=== PATIENT | female | born 1955 | race Caucasian/White ===

== ENCOUNTER → 2018-11-30 | Outpatient (CLI) | payer MEDICARE, OTHER | LOC: GMAL 10:28 | PROVIDERS: ATTEND Family Medicine | DX: D51.3 Other dietary vitamin B12 deficiency anemia (principal); R53.82 Chronic fatigue, unspecified; E55.9 Vitamin D deficiency, unspecified; I10 Essential (primary) hypertension; E11.9 Type 2 diabetes mellitus without complications; E78.49 Other hyperlipidemia ==

== ENCOUNTER → 2018-12-13 | Outpatient (CLI) | payer MEDICARE, OTHER ==
--- NOTE | 2018-12-14 17:06 | MAM ---
EXAM DESCRIPTION: 3D Screening BILATERAL : Digital Mammography. CLINICAL HISTORY: 63 years Female ANNUAL SCREENING . No complaints. No personal or family history of breast cancer. Childbirth. Postmenopausal 20+ years. No HRT. Lifetime risk of developing breast cancer (Tyrer-Cuzick model)(%): 4.6. COMPARISON: 2-D digital screening bilateral mammography 01/19/2012. No prior reports available. TECHNIQUE: Bilateral CC and MLO projection full-field images, digital tomosynthesis mammographic technique. Bilateral digital 2-D full-field MLO images. CAD not available for tomosynthesis or 2-D images. FINDINGS: The breast parenchymal density pattern is: Heterogeneously dense breast tissue, which may obscure small masses. No skin thickening or nipple retraction. Bilateral multiple solitary microcalcifications. Stable large left axillary lymph node and intramammary lymph node left breast. No new focal, stellate mass or density, focal asymmetry , and no suspicious microcalcifications bilaterally. Stable mammograms compared to prior study. Taking into account, differences in mammographic technique. IMPRESSION: Benign exam. BIRAD CATEGORY: 2 BENIGN FINDINGS. RECOMMENDATIONS: FOLLOW UP: Routine digital bilateral mammographic screening, one year interval from December 2018. Written communication explaining the IMPRESSION and follow-up, will be mailed to the patient and referring health care provider. According to the [employer], yearly mammograms are recommended starting at age 40 and continuing as long as a woman is in good health. Any breast change noted on a breast self-exam should be reported promptly to the patient's healthcare provider. Breast MRI is recommended for women with an approximately 20-25% or greater lifetime risk of breast cancer, including women with a strong family history of breast or ovarian cancer and women who have been treated for Hodgkin's disease. A negative mammographic report should not delay tissue diagnosis in patients with significant clinical history or physical findings. Extremely dense breast tissue limits the sensitivity of digital mammography. Electronically signed by: Gustavo Hamilton MD 12/14/2018 5:04 PM CDT
== END ==
LOC: MAMMO 08:39
PROVIDERS: ATTEND Family Medicine
DX: Z12.31 Encounter for screening mammogram for malignant neoplasm of breast (principal)

== ENCOUNTER 2019-01-26 05:47 | Day surgery (SDC) | payer MEDICARE, OTHER ==
[2019-01-26] MEDS ORDERED: LACTATED RINGERS 1,000 ML ONE (06:11)
[2019-01-26] MEDS ORDERED: LACTATED RINGERS 1,000 ML IVS ONE (07:55)
[2019-01-26 08:56] VITALS: O2SAT 98
--- NOTE | 2019-01-26 09:35 | OP ---
DATE OF PROCEDURE: 01/26/19 PREOPERATIVE DIAGNOSIS: 1. Colorectal cancer screening. POSTOPERATIVE DIAGNOSIS: 1. Unremarkable colonoscopy. PROCEDURE: 1. Colonoscopy. SURGEON: Bradley Camacho MD ANESTHESIA: Monitored anesthesia care. ESTIMATED BLOOD LOSS: Less than 5 mL. COMPLICATIONS: None. PROCEDURE: The patient was placed in the left lateral decubitus position. A time-out was performed. After deep sedation was achieved, the Olympus adult colonoscope was inserted through anus, into the rectum and advanced to the cecum under direct visualization with mild difficulty due to redundant right and left colon. Advancement of the endoscope required abdominal counterpressure. The terminal ileum was intubated and examined. The cecum was identified by the terminal ileum, ileocecal valve and the appendiceal orifice. Photodocumentation of these locations was performed. The patients bowel preparation was excellent. The endoscope was then progressively withdrawn and the total colonic lumen evaluated. Retroflexion was performed both in the right colon and in the rectum. The endoscope was then withdrawn and the procedure terminated. The patient tolerated the procedure well with no immediate complications. FINDINGS: 1. Unremarkable colonoscopy exam to the terminal ileum. IMPRESSION: 1. Unremarkable colonoscopy. RECOMMENDATIONS: 1. Okay to discharge home once the patient meets discharge criteria. 2. Resume prior diet. 3. Resume home medications. 4. Repeat colonoscopy in 10 years for colon cancer screening. 5. Followup in the GI clinic as needed. 6. Followup with primary care physician or referring physician as previously scheduled. #[id number] MTDD
[2019-01-26] MEDS ORDERED: LIDOCAINE 1% 10 ML VIAL INJ ONE (10:00)
[2019-01-26] MEDS ORDERED: PROPOFOL 200 MG/20 ML VIAL IV ONE (10:00)
[2019-01-26 10:12] VITALS: BP 210/99; TEMP 98.2
== END 2019-01-26 09:20 | disposition home or self-care (01) ==
LOC: AMB 05:47
PROVIDERS: ATTEND Internal Medicine Gastroenterology
DX: Z12.11 Encounter for screening for malignant neoplasm of colon (principal); Q43.8 Other specified congenital malformations of intestine; Z86.010 Personal history of colon polyps
CPT/HCPCS: 00812; 36416; 82948; G0105; J3490; J7120

== ENCOUNTER → 2019-07-19 | Outpatient (CLI) | payer MEDICARE, OTHER | LOC: RESP 14:15 | PROVIDERS: ATTEND Family Medicine | DX: R00.2 Palpitations (principal) ==

== ENCOUNTER 2019-10-10 21:40 | Observation (INO) | payer MEDICARE, OTHER ==
[2019-10-10] MEDS ORDERED: SODIUM CHLORIDE 0.9% (FLUSH) 10 ML SYG IV PRN (21:49)
[2019-10-10] MEDS ORDERED: NITROGLYCERIN 0.4 MG 25 EA TAB SL ONE (21:49)
--- NOTE | 2019-10-10 21:50 | ED.PDOC ---
History of Present Illness - General Chief Complaint: Chest Pain/CA Stated Complaint: chest pain Time Seen by Provider: 10/10/19 21:49 Source: patient - History of Present Illness Initial Comments: 63 yo female with PMH of HTN, DM2, HLD, A-fib on Eliquis who presents via EMS with CC of chest pain. Onset approximately 2 hours ago at [facility] while walking around shortly after eating some fast food. Reports initially mild dull/aching pain. She went home and the pain progressed further to a constant dull/aching/pressure pain in the center of her chest without radiation, at worst 8/10 severity for approximately 15 minutes and began to ease up shortly after taking one nitroglycerin tablet at home. EMS was called and patient transported to the ED, given baby aspirin x4 and another nitroglycerin tablet in route. Currently she report only 3/10 severity pain. Uncertain if the pain worsens with exertion, does worsen with deep breathing. Reports some brief dyspnea earlier but now resolved. Denies any fevers, chills, cough, sore throat, palpitations, leg swelling, abdominal pain, nausea/vomiting/diarrhea. PCP is Dr. Santana. Her sales warehouse driver is Dr. Boykin in [place]. Denies any history of CA or stents. Allergies/Adverse Reactions: Allergies NO KNOWN ALLERGY Allergy (Verified 10/10/19 21:53) Home Medications: Ambulatory Orders Lisinopril 1 tablet PO BID 01/21/19 Lovastatin 1 tablet PO BEDTIME 01/21/19 Metformin HCl [Fortamet] 500 mg PO TIDFD 01/21/19 Sertraline HCl [Zoloft] 50 mg PO BEDTIME 01/21/19 Fenofibrate 1 tablet PO DAILY 01/26/19 Review of Systems - Review of Systems Review of Systems: 10/10/19 22:11 as per HPI All other Systems: Reviewed and Negative Past Medical History (General) - Patient Medical History Hx Congestive Heart Failure: No Hx Diabetes: Yes - FBS-117 Hx MRSA: No Family Medical History - Family History Mother Family History: Unknown Physical Exam - Physical Exam General Appearance: Alert, Comfortable, No apparent distress Eyes, Ears, Nose, Throat Exam: PERRL/EOMI, normal ENT inspection, pharynx normal Neck: non-tender, full range of motion, supple, normal inspection Respiratory: chest non-tender, lungs clear, normal breath sounds, no respiratory distress, no accessory muscle use Cardiovascular/Chest: normal peripheral pulses, regular rate, rhythm, no edema, no gallop, no JVD, no murmur Peripheral Pulses: radial,right: 2+, radial,left: 2+ Gastrointestinal/Abdominal: non tender, soft, no organomegaly Extremity: normal range of motion, non-tender, normal inspection, no pedal edema, no calf tenderness 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 fib, other -BP elevated to 170s/100s on arrival, remainder of vitals WNL, patient stable, NAD -Obtain cardiac work-up, blood work, chest x-ray, EKG -Place PIV, will give nitroglycerin as needed, oxygen, aspirin already given by EMS in route 10/11/19 00:06 -Patient reexamined, remains stable, BP still slightly elevated 160s/90s, remainder of vitals WNL. -Initial troponin <0.02, pending repeat. Repeat EKG reveals some nonspecific T wave inversions in the anteroseptal leads but is otherwise unchanged from the initial. -Patient reports that her chest pain has been nearly resolved now for about 1 hour, rates 1/10 pain. Will give another dose of sublingual nitroglycerin and morphine 2 mg IV and reassess. Anticipate observation placement for chest pain. Her heart score is 5, which places her in the moderate risk category. 10/11/19 00:56 -Patient remains chest pain-free, vitals stable. Repeat troponin is <0.02. Discussed the patient in full with on-call hospitalist, Josemanuel Fernandez, who accepts the patient for observation placement for chest pain. Brian Barrientos MD Billing #[id number] 10/10/19 21:49 IV Care:Saline Lock per Protoc QSHIFT Telemetry .ONCE Sodium Chloride 0.9% (Flush) [Saline Flush Syringe] 10 ml IV PRN PRN EKG Stat Pulse Ox Stat Pulse Oximetry Assessment DAILY 10/10/19 23:45 EKG STAT Laboratory Results - last 24 hr 10/10/19 10/10/19 10/10/19 22:05 22:05 22:05 WBC 9.2 RBC 3.51 L Hgb 10.9 L Hct 31.4 L MCV 89.5 MCH 31.0 MCHC 34.6 RDW 12.9 Plt Count 277 MPV 6.6 L Absolute Neuts (auto) 7.20 H Absolute Lymphs (auto) 1.10 Absolute Monos (auto) 0.50 Absolute Eos (auto) 0.30 Absolute Basos (auto) 0.10 Neutrophils % 78.3 H Lymphocytes % 12.3 L Monocytes % 5.7 Eosinophils % 3.1 Basophils % 0.6 Sodium 136 Potassium 3.6 Chloride 103 Carbon Dioxide 24 Anion Gap 12.6 BUN 22 H Creatinine 0.99 BUN/Creatinine Ratio 22.2 H Random Glucose 202 H Serum Osmolality 281.0 Calcium 9.1 Troponin I B-Natriuretic Peptide 41.4 10/10/19 10/10/19 22:05 23:48 WBC RBC Hgb Hct MCV MCH MCHC RDW Plt Count MPV Absolute Neuts (auto) Absolute Lymphs (auto) Absolute Monos (auto) Absolute Eos (auto) Absolute Basos (auto) Neutrophils % Lymphocytes % Monocytes % Eosinophils % Basophils % Sodium Potassium Chloride Carbon Dioxide Anion Gap BUN Creatinine BUN/Creatinine Ratio Random Glucose Serum Osmolality Calcium Troponin I < 0.02 < 0.02 B-Natriuretic Peptide - EKG/XRAY/CT EKG: Sinus - NSR, HR 85, no ST elevations or Q waves noted, left axis deviation, intervals normal, nonspecific minimal ST segment changes noted in the lateral leads, no prior EKG for comparison XRAY: chest - No acute processes per my read Departure - Departure Clinical Impression: Chest pain Time of Disposition: 00:56 Disposition: Admit Patient Condition: Fair Departure Forms: ED Discharge - Pt. Copy, Patient Portal Self Enrollment Referrals: Robby Santana III, MD [Primary Care Provider] - 1-2 Weeks Home Medications: Ambulatory Orders Lisinopril 1 tablet PO BID 01/21/19 Lovastatin 1 tablet PO BEDTIME 01/21/19 Metformin HCl [Fortamet] 500 mg PO TIDFD 01/21/19 Sertraline HCl [Zoloft] 50 mg PO BEDTIME 01/21/19 Fenofibrate 1 tablet PO DAILY 01/26/19 Decision To Admit - Decistion To Admit Decision to Admit Reason: Admit from ER Decision to Admit Date: 10/11/19 Decision to Admit Time: 00:56
[2019-10-10] MEDS ORDERED: ASPIRIN (CHEWABLE) 81 MG TAB PO ONE (21:51)
--- NOTE | 2019-10-10 22:21 | RAD ---
EXAM DESCRIPTION: XR CHEST, 1 VIEW CLINICAL HISTORY: chest pain TECHNIQUE: Single frontal view of the chest is submitted. COMPARISON: None available for comparison FINDINGS: Heart: The cardiothoracic silhouette is within normal limits. Lungs: No focal consolidation. Mediastinum: Unremarkable Pleura: No appreciable effusion. No pneumothorax. Bones: Intact Upper abdomen: Unremarkable IMPRESSION: No acute disease. Electronically signed by: Kasi Cummings MD 10/10/2019 10:19 PM CDT
[2019-10-11] MEDS ORDERED: MORPHINE SULFATE INJ 10 MG/ML VIAL IV ONE (00:05)
[2019-10-11] MEDS ORDERED: NITROGLYCERIN 0.4 MG 25 EA TAB SL ONE (00:05)
[2019-10-11 01:33] VITALS: TEMP 98
[2019-10-11] MEDS ORDERED: ACETAMINOPHEN 325 MG TAB PO PRN (01:37)
[2019-10-11] MEDS ORDERED: NITROGLYCERIN 0.4 MG 25 EA TAB SL PRN (01:37)
[2019-10-11] MEDS ORDERED: MORPHINE SULFATE INJ 10 MG/ML VIAL IV PRN (01:37)
[2019-10-11] MEDS ORDERED: SODIUM CHLORIDE 0.9% (FLUSH) 10 ML SYG IV PRN (01:37)
[2019-10-11] MEDS ORDERED: GLUCAGON INJ 1 MG VIAL SUBCU PRN (01:44)
[2019-10-11] MEDS ORDERED: DEXTROSE 50% 25 GM/50 ML SYG IV PRN (01:44)
[2019-10-11] MEDS ORDERED: IV SET AND CAP CHANGE INJ INJ SCH (02:00)
[2019-10-11] MEDS ORDERED: INSULIN LISPRO 100 UNITS/ML PEN SUBCU SCH (07:00)
[2019-10-11] MEDS ORDERED: NON-FORMULARY MEDICATION 1 EA MIS (Metformin Hcl [Fortamet] 500 MG) PO SCH (07:30)
[2019-10-11] MEDS ORDERED: metFORMIN HCL 500 MG TAB ONE (07:34)
[2019-10-11] MEDS ORDERED: SODIUM CHLORIDE 0.9% (FLUSH) 10 ML SYG IV SCH (09:00)
[2019-10-11] MEDS ORDERED: APIXABAN 5 MG TAB PO SCH (09:00)
[2019-10-11] MEDS ORDERED: VERAPAMIL ER 120 MG TAB PO SCH (09:00)
[2019-10-11] MEDS ORDERED: FENOFIBRIC ACID 135 MG CAP PO SCH (09:00)
[2019-10-11] MEDS ORDERED: LISINOPRIL 10 MG TAB PO SCH (09:00)
[2019-10-11 09:34] VITALS: BP 153/76; O2SAT 98
[2019-10-11] MEDS ORDERED: metFORMIN HCL 500 MG TAB PO SCH ×2 (12:00→17:00)
--- NOTE | 2019-10-11 19:14 | SSS ---
SUPERVISING PHYSICIAN: Theo Lees MD DATE OF ADMISSION: 10/11/19 DATE OF DISCHARGE: 10/11/19 ADMISSION DIAGNOSIS: 1. Chest pain. 2. Diabetes mellitus, type 2. 3. Hypertension. 4. History of atrial fibrillation on Eliquis. DISCHARGE DIAGNOSIS: 1. Chest pain with no acute findings of acute coronary syndrome with no acute changes on EKG or any changes in cardiac workup, etiology uncertain. 2. Hypertension. 3. Type 2 diabetes mellitus. 4. History of atrial fibrillation on Eliquis with current EKGs at discharge showing a normal sinus rhythm with no ST or T wave changes. HISTORY OF PRESENT ILLNESS: Ms. Powell is a 63-year-old female patient that has a history of atrial fibrillation on Eliquis who came to the Emergency Room last night due to some chest pains. She endorses that approximately 2 hours after she was walking at [facility], she started developing some chest pains, dully, achy she describes in the center of her chest. She went home. The pain continued to worsen. She took a nitro for pain that was 8/10 in severity. The nitro did result in some decrease in her pain. She was brought to the ER by EMS and was given baby aspirins x4, another nitro en route with initial pain on presentation to the ER 3/10. She is not sure if the pain got worse with any exertional effort, but does worsen with deep breathing. She denied any actual fevers, chills, cough, sore throat, palpitations or abdominal pains. She does see Dr. Helm in [place] for cardiology and last saw her in August of this year and does not have a history of previous myocardial infarction or stent placement. Given that she is diabetic and the nature of her pain, the ER physician requested the patient be placed in observation for rule out for acute coronary syndrome. The patient was placed in observation in stable condition. PAST MEDICAL HISTORY: 1. Atrial fibrillation, chronic, on Eliquis. 2. Hypertension. 3. Former tobacco user. 4. Type 2 diabetes mellitus. PAST SURGICAL HISTORY: 1. Hysterectomy with bilateral salpingo-oophorectomy in 1993. 2. Bilateral tubal ligation. 3. Last stress test per review of records was in 2008 and at that point, she did have some stress induced ischemia in the inferolateral leads in the left ventricle which was later false positive as the cath that was done shortly after that in January of the same year was within normal limits. HOME MEDICATIONS: 1. Lisinopril. 2. Metformin. 3. Sertraline. 4. Lovastatin. 5. Fenofibrate. 6. Verapamil. 7. Eliquis. 8. Nitroglycerin. ALLERGIES: NO KNOWN DRUG ALLERGIES. FAMILY HISTORY: Father at age 78 secondary to prostate cancer and CVA and had a myocardial infarction with hypertension and diabetes. Mother had hypertension. She from a heart attack at age 57. She has two brothers that have hypertension. She has three sisters who have hypertension and diabetes. She has one son, one currently in this year, and she has two healthy daughters. 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 She is . She has three children currently, one this year. She does have a history of smoking tobacco, but quit at age 30. She does not use illicit drug or drink alcohol. REVIEW OF SYSTEMS: CONSTITUTIONAL: Negative for any fevers, chills, general malaise or unintentional weight loss. HEENT: Negative for sore throats, earaches, nasal congestion, vision changes. RESPIRATORY: Negative for shortness of breath, coughing or wheezing. CARDIOVASCULAR: As noted in history of present illness, chest pain. No reported syncopal episodes or tachycardia. GASTROINTESTINAL: Negative for nausea, vomiting, diarrhea, constipation or abdominal pain. GENITOURINARY: Negative for dysuria, hematuria, polyuria. MUSCULOSKELETAL: Negative for arthralgias or joint swelling. NEUROLOGIC: Negative for ataxia, seizures, syncopal episodes or other focal motor deficits. HEMATOLOGIC: Positive for easy bruising due to Eliquis. Negative for unexplained bleeding or transfusion reactions. PHYSICAL EXAMINATION: LABORATORY: White count 9,200, hemoglobin 10.9, hematocrit 31.4, platelet count 277,000. Differential did show a slight left shift, but her chemistries showed normal electrolytes with BUN 22, troponins less than 0.02 x3. Blood sugars ran between 115 and 120. Lipid panel was within normal limits with HDL 59, LDL 75, cholesterol 150, triglycerides 72. RADIOLOGY: Chest x-ray in the Emergency Room prior to admission per radiologic interpretation showed no acute disease. EKG showed normal sinus rhythm with just nonspecific ST wave changes, no acute changes from initial presentation until discharge. HOSPITAL COURSE: Ms. Powell was placed in observation for an extended rule out given her history of diabetes and current presentation of chest pains. She was admitted to the Floor in stable condition without any pain. Vital signs on admission showed she was hemodynamically stable and at discharge, blood pressure was 153/76, heart rate 76, afebrile at 98, pulse oximetry 98% on room air. She had no return of the symptoms, she had no pains of any sort, no chest pain or shortness of breath. She was continued on her home medications. She had no ectopy noted on cardiac telemetry that was monitored during the whole time was here. After exam, it was felt she was clinically stable enough to continue with outpatient management to followup with Dr. Santana as well as Dr. Helm. PLAN: Ms. Powell was placed in observation for rule out due to her history and current symptoms of chest pains prior to admission, but again was found to be without any recurrence of the symptoms she initially admitted with. I did discuss with her that she needs to followup with Dr. Santana, which she has an appointment for this week, and will need likely need another stress test, but that can be determined through Dr. Santana' office and, again, followup with Dr. Helm. She is to resume her normal diet, low fat, low cholesterol diet. Activities to increase as tolerated, but no strenuous exercise until she is cleared by Dr. Santana. MEDICATIONS PRESCRIBED ON DISCHARGE: 1. Nitroglycerin 0.4 mg sublingual q.3 minutes for chest pain as directed. No other medications were prescribed on discharge. DISPOSITION: The patient was discharged home. CONDITION ON DISCHARGE: Stable and improved. #[id number] [facility]
[2019-10-11] MEDS ORDERED: SIMVASTATIN 20 MG TAB PO SCH (21:00)
[2019-10-11] MEDS ORDERED: SERTRALINE HCL 50 MG TAB PO SCH (21:00)
== END 2019-10-11 11:30 | disposition home or self-care (01) ==
LOC: ER 21:40 → MS 10-11 01:01
PROVIDERS: ADMIT Nurse Practitioner Family; ATTEND Nurse Practitioner Family
DX: R07.89 Other chest pain (principal); I10 Essential (primary) hypertension; E11.9 Type 2 diabetes mellitus without complications; I48.20 Chronic atrial fibrillation, unspecified; I44.4 Left anterior fascicular block; Z79.01 Long term (current) use of anticoagulants; Z79.84 Long term (current) use of oral hypoglycemic drugs; Z79.899 Other long term (current) drug therapy; Z87.891 Personal history of nicotine dependence; Z82.49 Family history of ischemic heart disease and other diseases of the circulatory system
CPT/HCPCS: J2270; A4216; 80048; 82948 ×2; 80061; 36415 ×4; 85025; 84484 ×3; 83880; 36416; 71045; 94760 ×2; 93005 ×2; G0378

== ENCOUNTER → 2019-10-27 | Outpatient (CLI) | payer MEDICARE, OTHER ==
--- NOTE | 2019-10-28 10:10 | US ---
EXAM DESCRIPTION: Gall Bladder: ULTRASOUND. CLINICAL HISTORY: GASTRO-ESOPHAGEAL REFLUX DISEASE WITHOUT ESOPHAGITIS COMPARISON: Chest x-ray October 09. TECHNIQUE: Transabdominal scanning: Barron-scale and Doppler modes. FINDINGS: Gallbladder: normal size, shape, echogenicity; no intraluminal stones or sludge. No fluid around the gallbladder. No wall thickening. 2.6 mm. Non-tender with transducer pressure. Common bile duct: caliber 3.1 mm within normal limits. Liver: Increased echogenicity; contour liver capsule smooth where seen. No fluid around the liver. Intrahepatic biliary ducts normal caliber. Doppler hepatopedal flow portal vein.. 8 mm caliber at the juanita hepatis. Long axis right lobe 12.9 cm. Pancreas: normal size Normal echogenicity. Duct not seen. Aorta: 1.9 cm normal caliber. Right kidney: long axis is 8.9 cm. Normal cortical thickness and echogenicity. No echogenic stones or hydronephrosis.. IMPRESSION: 1. Fatty liver without enlargement. Physiologic vascularity. Otherwise negative. Unremarkable pancreas. 2. Negative findings gallbladder and common bile duct. Right kidney and abdominal aorta are unremarkable. No ascites. Electronically signed by: Gustavo Hamilton MD 10/28/2019 10:09 AM CDT
== END ==
LOC: US 07:53
PROVIDERS: ATTEND Family Medicine
DX: K21.9 Gastro-esophageal reflux disease without esophagitis (principal); K76.0 Fatty (change of) liver, not elsewhere classified

== ENCOUNTER → 2020-01-24 | Outpatient (CLI) | payer MEDICARE, OTHER | LOC: GMAL 10:24 | PROVIDERS: ATTEND Family Medicine | DX: D51.3 Other dietary vitamin B12 deficiency anemia (principal); E11.9 Type 2 diabetes mellitus without complications; R53.83 Other fatigue; E55.9 Vitamin D deficiency, unspecified; Z79.899 Other long term (current) drug therapy; E78.49 Other hyperlipidemia ==

== ENCOUNTER 2020-02-13 05:17 | Day surgery (SDC) | payer MEDICARE, OTHER ==
[2020-02-13] MEDS ORDERED: PROPARACAINE 0.5% OPHTH SOL 15 ML BTTL RIGHT_EYE ONE ×2 (10:29→10:53)
[2020-02-13] MEDS ORDERED: LIDOCAINE 1% 2 ML VIAL INJ ONE ×2 (10:30→10:53)
[2020-02-13] MEDS ORDERED: MOXIFLOXACIN HCL (OPHTH) 1 DROP DROPS RIGHT_EYE ONE ×2 (10:30→10:53)
[2020-02-13] MEDS ORDERED: DEXAMETHASONE 0.1% OPHTH SOL 1 DROP RIGHT_EYE ONE ×2 (10:30→10:53)
[2020-02-13] MEDS ORDERED: BRIMONIDINE 0.2% OPHTH DROPS RIGHT_EYE ONE ×2 (10:31→10:53)
[2020-02-13] MEDS ORDERED: TOBRAMYCIN SULF 0.3 % OPHT SOL 1 DROP RIGHT_EYE ONE ×2 (10:31→10:53)
[2020-02-13] MEDS ORDERED: MIDAZOLAM INJ 2 MG/2 ML VIAL ONE (10:52)
== END 2020-02-13 12:18 | disposition home or self-care (01) ==
LOC: AMB 05:17
PROVIDERS: ATTEND Ophthalmology
DX: E11.36 Type 2 diabetes mellitus with diabetic cataract (principal); H25.11 Age-related nuclear cataract, right eye; I10 Essential (primary) hypertension; Z79.84 Long term (current) use of oral hypoglycemic drugs; Z79.01 Long term (current) use of anticoagulants; Z79.899 Other long term (current) drug therapy
CPT/HCPCS: 00142; 36416; 66984; 82948; J2250

== ENCOUNTER → 2020-02-27 | Outpatient (CLI) | payer MEDICARE, OTHER | LOC: GMAL 10:45 | PROVIDERS: ATTEND Family Medicine | DX: D50.8 Other iron deficiency anemias (principal); R53.83 Other fatigue ==

== ENCOUNTER → 2020-03-05 | Outpatient (CLI) | payer MEDICARE, OTHER ==
[~2020-03-05] MED LIST: ACETAMINOPHEN 325 MG TAB PO ONE; FAMOTIDINE IV PREMIX 20 MG in PREMIX BAG 1 BAG IVPB ONE; IRON SUCROSE INJ 200 MG in SODIUM CHLORIDE 0.9% 250ML 250 ML IV ONE; diphenhydrAMINE HCL 50 MG/ML VIAL IV ONE
[2020-03-05 14:11] VITALS: BP 156/67; TEMP 98.2; O2SAT 98
== END ==
LOC: INFRM 13:27
PROVIDERS: ATTEND Family Medicine
DX: D50.8 Other iron deficiency anemias (principal)
CPT/HCPCS: 96365; 96367; 96375; J1756; J3490; J7050

== ENCOUNTER → 2020-03-26 | Outpatient (CLI) | payer MEDICARE, OTHER | LOC: GMAL 14:43 | PROVIDERS: ATTEND Family Medicine | DX: D50.8 Other iron deficiency anemias (principal) ==

== ENCOUNTER → 2020-04-24 | Outpatient (CLI) | payer MEDICARE, OTHER | LOC: GMAL 10:32 | PROVIDERS: ATTEND Family Medicine | DX: D50.8 Other iron deficiency anemias (principal); Z79.899 Other long term (current) drug therapy; R19.5 Other fecal abnormalities ==

== ENCOUNTER → 2020-05-25 | Outpatient (CLI) | payer MEDICARE, OTHER ==
--- NOTE | 2020-05-26 11:36 | MRI ---
EXAM DESCRIPTION: Brain w/wo Contrast: Magnetic Resonance Imaging. CLINICAL HISTORY: 64 years Female AGE-RELATED COGNITIVE DECLINE COMPARISON: None. TECHNIQUE: Multiplanar, high-field MRI, multiple conventional sequences, without and with gadolinium IV contrast. No adverse reactions. Multiple axial diffusion sequences. FINDINGS: In the vertex of the right cerebral hemisphere near the frontoparietal junction is hyperintense signal on the diffusion DWI SB 0 and SB 1000 scans. Minimal hypointense signal on the ADC map scan. No abnormal enhancement. Diffusion abnormality, versus vascularity, versus artifact. Remainder of the diffusion scans are unremarkable. Bilateral confluent periventricular hyperintense FLAIR and T2-weighted signal in the periventricular white matter involving the frontal horns and frontal lobes extending to the bilateral centrum semiovale. Also bilateral focal punctate hyperintense FLAIR and T2 weighted lesions in the bilateral frontal lobes and left parietal lobe. Possible smaller lesions in the right occipital lobe.. No hemorrhage, no cerebral edema, no mass-effect. No abnormal contrast enhancement. Normal signal in the bilateral basal ganglia. Normal contrast enhancement. Normal signal in the brainstem and cerebellar hemispheres. Normal contrast enhancement. Concordance of the diffusion and non-diffusion sequences with no evidence of acute or subacute infarction. Cortical sulci, ventricles, and other CSF spaces, and the subdural spaces are normal in configuration for patient's age. No effacement or displacement. No midline shift. No extra-axial hemorrhage. Normal contrast enhancement. Normal flow signal void in the major vessels of the nome Styles, and the venous sinuses. IACs are symmetric bilaterally. Normal signal in the bilateral mastoid air cells. No mass effect in the bilateral Cerebellopontine angles. Normal contrast enhancement. Pituitary gland occupies the entire sella. Normal contrast enhancement. Base of the cerebellar tonsils is at the level of the foramen magnum. Mucoperiosteal thickening in the paranasal sinuses with no air-fluid levels.. The bony calvarium is intact. IMPRESSION: 1. Questionable area of diffusion restriction superior vertex right frontoparietal junction. More likely normal vascularity or artifact. Correlate with clinical findings. No other regions of diffusion restriction. 2. No extra-axial hemorrhage or fluid collection. No intra-axial hemorrhage, mass effect, midline shift, or edema. Minimal periventricular and subcortical white matter lesions, most likely related to cerebral microvascular disease or aging. 3. Chronic sinusitis. Nasal region with no air-fluid levels. Electronically signed by: Gustavo Hamilton MD 05/26/2020 11:34 AM [facility]
== END ==
LOC: MRI 09:42
PROVIDERS: ATTEND Family Medicine
DX: R41.81 Age-related cognitive decline (principal); J32.9 Chronic sinusitis, unspecified; R90.82 White matter disease, unspecified; G93.9 Disorder of brain, unspecified

== ENCOUNTER 2020-06-06 05:58 | Day surgery (SDC) | payer MEDICARE, OTHER ==
[2020-06-06] MEDS ORDERED: SODIUM CHLORIDE 0.9% 1000ML 1,000 ML ONE (06:32)
[2020-06-06] MEDS ORDERED: PROPOFOL 200 MG/20 ML VIAL IV ONE (07:00)
[2020-06-06] MEDS ORDERED: LIDOCAINE 1% 10 ML VIAL INJ ONE (07:00)
[2020-06-06] MEDS ORDERED: LACTATED RINGERS 1,000 ML IVS ONE (08:40)
--- NOTE | 2020-06-06 09:23 | OP ---
DATE OF PROCEDURE: 06/06/20 PREOPERATIVE DIAGNOSIS: 1. Iron deficiency anemia related to chronic blood loss. POSTOPERATIVE DIAGNOSIS: 1. Small hiatal hernia. 2. Otherwise, normal upper endoscopy. PROCEDURE: 1. Esophagogastroduodenoscopy. SURGEON: Bradley Camacho MD ANESTHESIA: Monitored anesthesia care. ESTIMATED BLOOD LOSS: Less than 5 mL. COMPLICATIONS: None. PROCEDURE: The patient was placed in the left lateral decubitus position. A time-out was performed. After deep sedation was achieved, the Olympus adult upper endoscope was inserted through the oropharynx and into the proximal esophagus and advanced to the second portion of the duodenum under direct visualization. The endoscope was then progressively withdrawn and the duodenum, stomach and esophageal lumen were evaluated. Retroflexion was performed in the stomach. The endoscope was then withdrawn and the procedure terminated. The patient tolerated the procedure well with no immediate complications. FINDINGS: 1. Esophagus: A small hiatal hernia was noted. The esophagus was otherwise unremarkable. 2. Stomach: The stomach was completely unremarkable. There was no evidence of gastritis, ulceration, no evidence of bleeding. 3. Duodenum: The first and second portions of the duodenum were unremarkable. IMPRESSION: 1. Small hiatal hernia, otherwise unremarkable upper endoscopy. RECOMMENDATIONS: 1. Okay to discharge home once the patient meets discharge criteria. 2. Resume prior diet. 3. Resume home medications, resume Eliquis today. 4. Followup in GI clinic with Dr. Camacho in 3 months. #[id number] MTDD
[2020-06-06 09:58] VITALS: BP 141/93; TEMP 97.1; O2SAT 99
== END 2020-06-06 09:50 | disposition home or self-care (01) ==
LOC: AMB 05:58
PROVIDERS: ATTEND Internal Medicine Gastroenterology
DX: D50.0 Iron deficiency anemia secondary to blood loss (chronic) (principal); K44.9 Diaphragmatic hernia without obstruction or gangrene; I48.91 Unspecified atrial fibrillation; E66.9 Obesity, unspecified; Z86.010 Personal history of colon polyps; Z68.30 Body mass index [BMI] 30.0-30.9, adult; Z79.01 Long term (current) use of anticoagulants; Z79.84 Long term (current) use of oral hypoglycemic drugs; Z79.899 Other long term (current) drug therapy
CPT/HCPCS: 00731; 43235; 82948; J3490; J7030; J7120

== ENCOUNTER → 2020-07-03 | Outpatient (CLI) | payer MEDICARE, OTHER | LOC: GMAL 12:02 | PROVIDERS: ATTEND Family Medicine | DX: D50.8 Other iron deficiency anemias (principal); I10 Essential (primary) hypertension ==